=== PATIENT | female | born 1980 | race Caucasian/White ===

== ENCOUNTER 2016-10-19 14:23 | Inpatient (IN) | payer MEDICAID ==
[~2016-10-19] VITALS: Ht 149.9 cm; Wt 79.5 kg
[2016-10-19 14:33] VITALS: Ht 149.9 cm; Wt 79.5 kg
[2016-10-19] MEDS ORDERED: OXYTOCIN 30 UNITS/LR 500 ML IV PRN (16:00)
[2016-10-19] MEDS ORDERED: MISOPROSTOL 200 MCG TAB PR PRN (16:00)
[2016-10-19] MEDS ORDERED: METHYLERGONOVINE 0.2 MG INJ IM PRN (16:00)
[2016-10-19] MEDS ORDERED: CEFAZOLIN 2 GM/50 ML (PMX) 50 ML IV SCH (16:00)
[2016-10-19] MEDS ORDERED: CARBOPROST 250 MCG INJ IM PRN (16:00)
[2016-10-19 16:25] LABS: ADD SCAN DIFF NO; BASOPHILS % 0.3 % (0.0-2.0); EOSINOPHILS % 0.5 % (0.0-7.0); HEMATOCRIT 35.2 % (37.0-47.0); HEMOGLOBIN 12.4 g/dl (12.0-16.0); LYMPHOCYTES # 1.5 10^3/ul (0.8-2.9); LYMPHOCYTES % 18.7 % (15.0-51.0); MEAN CORPUSCULAR HEMOGLOBIN 31.3 pg (29.0-33.0); MEAN CORPUSCULAR HGB CONC 35.2 g/dl (32.0-37.0); MEAN CORPUSCULAR VOLUME 88.9 fl (82.0-101.0); MEAN PLATELET VOLUME 11.1 fl (7.4-10.4); MONOCYTE # 0.6 10^3/ul (0.3-0.9); MONOCYTES % 7.3 % (0.0-11.0); NEUTROPHIL # 5.7 10^3/ul (1.6-7.5); NEUTROPHILS % 72.7 % (39.0-77.0); PLATELET COUNT 173 10^3/UL (140-415); RED BLOOD COUNT 3.96 10^6/ul (4.20-5.40); RED CELL DISTRIBUTION WIDTH 13.9 % (11.5-14.5); WHITE BLOOD COUNT 7.9 10^3/ul (4.8-10.8)
[2016-10-19] MEDS: LACTATED RINGER'S 1,000 ML IV SCH ×2 (16:36→18:30)
[2016-10-19 16:41] LABS: INR 0.92; PROTIME 12.4 Sec (12.2-14.2)
[2016-10-19 16:42] LABS: PARTIAL THROMBOPLASTIN TIME 27.3 Sec (25.0-35.0)
[2016-10-19] MEDS ORDERED: morphine SULFATE/PF (10 MG/10 ML) INJ ONE (21:08)
[2016-10-19] MEDS ORDERED: FENTAnyl 50 MCG/ML VIAL ONE (21:09)
--- NOTE | 2016-10-19 21:14 | HP ---
Date/Time of Note Date/Time of Note DATE: 10/19/16 TIME: 21:01 OB - History Hx of Present Free Text/Dictation 36 y/o with SIUP at 38 6/7 weeks with three previous C/S presents with a chief complaint of ucs. She has [facility] with [facility]Scott Larry MD. She states good movement. She denies nausea, vomiting, shortness of breath, chest pain, and abdominal pain between contractions, headache, visual changes, vaginal bleeding or LOF. She is desiring BTL Chief Complaint: ucs : 5 Para: 4 Spontaneous : 0 Therapeutic : 0 Care: Good Care Ultrasounds: Normal mid trimester US Obstetrical Complications: None Medical Complications: None Past Family/Social History * Past Medical, Surgical, Family and Obstetric Histories reviewed from chart. Blood Type: O+ Rubella: immune RPR/VDRL: Negative GBS Status: Positive HBsAG: Negative OB Admission Exam Physical Exam HEENT: WNL Heart: Rhythm Normal Lungs: Clear Extremities: Normal Reflexes: Normal Cervical Dilatation: 1cm Effacement: 75% Station: -2 Heart Rate: 140's Accelerations: Accelerations Present Decelerations: No Decelerations Varibility: Moderate Contractions on Admission: 6-10 Minutes Apart Intensity: Moderate Last 72 hours Lab Results CBC & BMP 10/19/16 15:33 OB Assessment/Plan Other plan: 36 y/o with SIUP at 38 6/7 weeks with three previous C/S in early labor desiring repeat C/S and BTL - FHR: No sign of metabolic acidosis- Category I - Continious EFM, toco - CBC, blood type and screen - Analgesia options with R/B/A discussed in detail with patient - Epidural per patient request - Please see the orders - O+/Rubella: Immune/GBS positive Admission, procedures, expectations, risks and possible complications have been discussed in detail with the patient. delivery with risk of bleeding, infection, injury to other organs (bowel, bladder, ureter, vessels, nerves), injury to fetus, blood transfusion, blood transfusion related infection, risk of anesthesia, scar and hernia formation, needs for future , removal of uterus or any other indicated surgery and permanent sterilization with BTL, R/B/ A/FR of BTL, increase risk of EP if failure occurs discussed with the patient. She expressed understanding and repeats the risks. All of her questions were answered. She signed consent form PHYSICIAN'S VERIFICATION OF INFORMED CONSENT: The patient was counseled regarding the procedure, its indications, risks, potential complications and alternatives and any questions were answered. Consent was obtained. PLANNED PROCEDURE/TREATMENT: delivery, Bilateral tubal ligation, possible vacuum and forceps delivery PHYSICIAN'S VERIFICATION OF INFORMED CONSENT FOR BLOOD TRANSFUSION: There is a reasonable possibility that blood transfusion will be necessary as a result of the patient's procedure. I have discussed the following with the patient/patient's legal fuels sales representative: An explanation of the benefits and risks of the transfusion of blood or blood products and the possible alternatives. Al questions have been answered to the patient's/patients legal representatives satisfaction. INFORMED CONSENT: The patient has been informed of: - The nature of the proposed care, treatment, services, medic- Potential benefits, risks or side effects, including potential problems related to recuperation. - The likelihood of achieving care treatment and service goals. - Reasonable alternatives to the proposed care, treatment and service. - The relevant risks, benefits and side effects related to alternatives, including the possible results of not receiving care, treatment and services. - When indicated, any limitations on the confidentiality of information learned from or about the patient. - If appropriate, the risks, benefits and alternatives of the drugs to be used for sedation/analgesia including moderate sedation. - If appropriate, patient has been provided information on the risks, benefits and alternatives to the transfusion of blood and/or blood products. SCOTT LARRY October 19, 2016 21:12
[2016-10-19] MEDS ORDERED: PHENYLephrine (100 MCG/ML) 5ML SYG ONE (21:20)
[2016-10-19] MEDS ORDERED: OXYTOCIN 30 UNITS/LR 500 ML IV ONE ×2 (21:22→22:40)
[2016-10-19] MEDS ORDERED: DEXAMETHASONE 4 MG/ML 1 ML INJ ONE (22:06)
[2016-10-19] MEDS ORDERED: ONDANSETRON 4 MG INJ ONE (22:07)
[2016-10-19] MEDS ORDERED: NALOXONE (0.4 MG/ML) INJ IV PRN (22:30)
[2016-10-19] MEDS ORDERED: KETOROLAC 30 MG INJ IV PRN (22:30)
[2016-10-19] MEDS ORDERED: DIPHENHYDRAMINE 50 MG INJ IV PRN (22:30)
[2016-10-19] MEDS ORDERED: ZOLPIDEM 5 MG TAB PO PRN (22:30)
[2016-10-19] MEDS ORDERED: HYDROmorphONE 1 MG/ML SYG IV PRN ×2 (22:30)
[2016-10-19] MEDS ORDERED: ONDANSETRON 4 MG INJ IV PRN (22:30)
[2016-10-19] MEDS ORDERED: DEXTROSE 5%-LR 1,000 ML IV SCH (22:50)
--- NOTE | 2016-10-19 22:50 | OPR ---
Operative Report Planned Procedure Free Text/Dictation 36 year-old, [id number], with single intrauterine at 38 6/7 weeks , three previous delivery and desiring for permanent sterilization presents in labor Procedure date October 19, 2016 Procedure(s) 1- Repeat C/S 2- Bilateral tubal ligation (Gemma procedure) Performed by: SCOTT LARRY Assisting provider: LORRAINE TAN MD Anesthesiologist: REJI ACOSTA Pre-procedure diagnosis 36 year-old, [id number], with single intrauterine at 38 6/7 weeks , three previous delivery and desiring for permanent sterilization in labor Anesthesia Type: spinal Procedure Description INDICATION & HISTORY The patient is a 36 year-old, [id number], with single intrauterine at 38 6/7 weeks, three previous delivery in labor. She desires BTL. The risks of delivery and BTL including but not limited to bleeding, infection, injury to other organs (bowel, bladder, ureters, vessels , nerves), injury to the , blood transfusion, blood transfusion related infections, removal of uterus, risk of anesthesia, risks with future , repeat , adhesion/hernia formation, permanent sterilization discussed in detail with the patient. She voiced understanding and agreed with . She signed the informed consent. DESCRIPTION OF OPERATION: The patient was taken to the operating room, where she was identified and the procedure was verified. She received spinal anesthesia. The patient was placed in dorsal supine position with the left tilt. The heart rate was 138 per minute. The patient was then prepped and draped in the normal sterile fashion. The Pfannenstiel skin incision was made, and carried down to the fascia with knife. The fascia was incised in the midline, and the fascial incision was carried laterally with the Hall scissors. The superior portion of the fascial incision was then grasped with Pavel clamps, tented up and dissected off the underlying rectus muscle with sharp dissection. The lower portion of the fascial incision was then made in a similar fashion. The rectus muscle was and the peritoneum was entered. The peritoneal incision was then stretched and a bladder blade was inserted. Then, an incision was made in the lower uterine segment in a transverse fashion with the knife and extended bluntly. The was delivered atraumatically in cephalic presentation, with the above findings. The resuscitation team was present and the baby was handed to them. A cord blood sample was obtained for further evaluation. The placenta and membranes, which appeared normal were removed. The uterus was exteriorized and cleared of all clots and debris. The uterus was then closed in a two layer fashion with 0 Vicryl. At the time of closure, hemostasis was noted. Left fallopian tubes grasped with Willits, an incision made on mesosalpinx with bovie, then both side of fallopian tube ligated with o plain. Segment of fallopian tube removed and sent to pathology. Same procedure performed at right side. The gutters were irrigated. The peritoneum was reapproximated with 3-0 Vicryl. The muscle was reapproximated with 3-0 Vicryl. The fascia approximated with 0 Vicryl in a running fashion. The subcutaneous closed with 3/0 vicryl. The skin was closed with 4-0 Monocryl. All instrument, sponge, lap, and needle counts were correct x4. The patient tolerated the procedure well. She was transferred to the recovery room in stable condition. The patient received 2 g Ancef 30 minutes prior to surgery. Post-Procedure Post-procedure diagnosis 36 year-old, [id number], with single intrauterine at 38 6/7 weeks , three previous delivery and desiring for permanent sterilization in labor Findings: Live Baby [male], Apgars [8] and [9], weight [3315 gram-7 lbs 5 oz], [cephalic] presentation [3 v]cord. Specimen removed: No Complications: None Pt Condition post procedure: stable Disposition: PACU Physician Certification I, the undersigned physician, hereby certify that I have discussed the procedure described in this consent form with this patient (or the patient's legal sales representative), including: * The risk and benefits of the procedure; * Any adverse reactions that may reasonably be expected to occur; * Any alternative efficacious methods of treatment which may be medically viable ; * The potential problems that may occur during recuperation; * Potential for blood transfusion and associated risks/benefits; and * Any research or economic interest I may have regarding this treatment. I further certify that the patient/legally responsible person was encouraged to ask question and that all questions were answered. SCOTT LARRY October 19, 2016 22:50
[2016-10-19] MEDS ORDERED: LIDOCAINE 1% (MPF) 30 ML INJ INJ PRN (23:00)
[2016-10-19] MEDS: OXYTOCIN 30 UNITS/LR 500 ML IV SCH (23:42)
[2016-10-20] VITALS (7 sets, daily range): BP systolic 97–127; BP diastolic 52–60; PULSE 70–85; RESP 17–20
[2016-10-20] MEDS: OXYTOCIN 30 UNITS/LR 500 ML IV SCH (01:56)
[2016-10-20 11:21] LABS: ADD SCAN DIFF NO
[2016-10-20 11:22] LABS: BASOPHILS % 0.1 % (0.0-2.0); HEMATOCRIT 28.8 % (37.0-47.0); HEMOGLOBIN 9.9 g/dl (12.0-16.0); LYMPHOCYTES # 1.2 10^3/ul (0.8-2.9); LYMPHOCYTES % 10.2 % (15.0-51.0); MEAN CORPUSCULAR HEMOGLOBIN 30.2 pg (29.0-33.0); MEAN CORPUSCULAR HGB CONC 34.4 g/dl (32.0-37.0); MEAN CORPUSCULAR VOLUME 87.8 fl (82.0-101.0); MEAN PLATELET VOLUME 11.1 fl (7.4-10.4); MONOCYTE # 0.7 10^3/ul (0.3-0.9); MONOCYTES % 5.9 % (0.0-11.0); NEUTROPHIL # 9.8 10^3/ul (1.6-7.5); NEUTROPHILS % 83.4 % (39.0-77.0); PLATELET COUNT 159 10^3/UL (140-415); RED BLOOD COUNT 3.28 10^6/ul (4.20-5.40); RED CELL DISTRIBUTION WIDTH 13.6 % (11.5-14.5); WHITE BLOOD COUNT 11.8 10^3/ul (4.8-10.8)
[2016-10-20] MEDS: LACTATED RINGER'S 1,000 ML IV SCH ×2 (11:40→17:02)
--- NOTE | 2016-10-20 16:15 | DS ---
Date/Time of Note Date/Time of Note DATE: 10/20/16 TIME: 16:13 Obstetrical Discharge Record Final Diagnosis Final Diagnosis: Term delivered Vaginal Delivery Obstetrical Delivery: Spontaneous Condition on Discharge Physical Assessment Last Vitals: ost day 2 Patient is doing well, Ambulatory She is afebrile Abdomen is soft , Fundus is firm Moderate amount of lochia Breasts are soft, Nipples are intact No calf tenderness. Perineum is healing well. Breast feeding the new born. Voiding: Yes Bowel Movement: Yes Breast: Soft, non-tender Fundus: Firm Episiotomy: Laboratory Tests Test 10/20/16 10:50 White Blood Count 11.810^3/ul Red Blood Count 3.2810^6/ul Hemoglobin 9.9g/dl Hematocrit 28.8% Mean Corpuscular Volume 87.8fl Mean Corpuscular Hemoglobin 30.2pg Mean Corpuscular Hemoglobin Concent 34.4g/dl Red Cell Distribution Width 13.6% Platelet Count 24319^3/UL Mean Platelet Volume 11.1fl Neutrophils % 83.4% Lymphocytes % 10.2% Monocytes % 5.9% Eosinophils % 0.0% Basophils % 0.1% Nucleated Red Blood Cells % 0.0/100WBC Neutrophils # 9.810^3/ul Lymphocytes # 1.210^3/ul Monocytes # 0.710^3/ul Eosinophils # 0.010^3/ul Basophils # 0.010^3/ul Nucleated Red Blood Cells # 0.010^3/ul Hepatitis B Surface Antigen NEGATIVE Hepatitis C Antibody NEGATIVE HIV (1&2) Antibody NEGATIVE Current Medications Medications (Trade) Dose Ordered Sig/Ramez Route PRN Reason Start Time Stop Time Status Last Admin Dose Admin Lactated Ringer's 1,000 ml @ 125 mls/hr Q8H IV 10/19/16 15:33 10/20/16 11:40 Cefazolin Sodium/ Dextrose 50 ml @ 100 mls/hr ONCE IV 10/19/16 16:00 10/20/16 03:09 DC 10/19/16 22:32 Oxytocin/Lactated Ringer's 500 ml @ 125 mls/hr ONCE IV 10/19/16 16:00 10/20/16 03:09 DC 10/20/16 01:56 Oxytocin/Lactated Ringer's 500 ml @ 0 mls/hr ONCE PRN IV For Hemorrhage Management 10/19/16 16:00 10/20/16 04:31 Methylergonovine Maleate (Methergine) 0.2 mg ONCE PRN IM VAGINAL BLEEDING 10/19/16 16:00 10/20/16 00:00 Carboprost Tromethamine (Hemabate) 250 mcg ONCE PRN IM VAGINAL BLEEDING 10/19/16 16:00 Misoprostol (Cytotec) 1,000 mcg ONCE PRN NV VAGINAL BLEEDING 10/19/16 16:00 10/20/16 01:37 Morphine Sulfate (Duramorph) 10 mg STK-MED ONCE .ROUTE 10/19/16 21:08 10/19/16 21:09 DC Fentanyl (Sublimaze) 100 mcg STK-MED ONCE .ROUTE 10/19/16 21:09 10/19/16 21:10 DC Phenylephrine HCl 500 mcg 500 mcg STK-MED ONCE .ROUTE 10/19/16 21:20 10/19/16 21:21 DC Oxytocin/Lactated Ringer's 500 ml @ ud STK-MED ONCE IV 10/19/16 21:22 10/19/16 21:23 DC Naloxone HCl (Narcan) 0.1 mg Q2M PRN IV FOR RESP RATE 8 OR LESS 10/19/16 22:30 10/20/16 21:11 Ketorolac Tromethamine (Toradol) 30 mg Q6H PRN IV PAIN 10/19/16 22:30 10/20/16 21:11 Hydromorphone HCl (Dilaudid) 0.2 mg Q3H PRN IV PAIN LEVEL 1-5 10/19/16 22:30 10/20/16 21:11 Hydromorphone HCl (Dilaudid) 0.4 mg Q3H PRN IV PAIN LEVEL 6-10 10/19/16 22:30 10/20/16 21:11 Diphenhydramine HCl (Benadryl) 25 mg Q6H PRN IV ITCHING 10/19/16 22:30 10/20/16 21:11 Ondansetron HCl (Zofran Inj) 4 mg Q6H PRN IV NAUSEA AND/OR VOMITING 10/19/16 22:30 10/20/16 21:11 Zolpidem Tartrate (Ambien) 5 mg HS MAY REPEAT X 1 PRN PO INSOMNIA 10/19/16 22:30 10/20/16 21:11 Miscellaneous Information (* Miscellaneous Pharmacy Order) Duramorph: .2 mg . Spi... GIVEN ONCE XX 10/19/16 22:30 10/19/16 22:31 DC Dexamethasone (Decadron) 4 mg STK-MED ONCE .ROUTE 10/19/16 22:06 10/19/16 22:07 DC Ondansetron HCl 4 mg 4 mg STK-MED ONCE .ROUTE 10/19/16 22:07 10/19/16 22:08 DC Oxytocin/Lactated Ringer's 500 ml @ ud STK-MED ONCE IV 10/19/16 22:40 10/19/16 22:41 DC Dextrose/Lactated Ringer's (D5-Lr) 1,000 ml @ 125 mls/hr Q8H IV 10/19/16 22:50 Lidocaine (Xylocaine 1% (Mpf)) 30 ml ONCE PRN INJ EPISIOTOMY/TEARING 10/19/16 23:00 10/20/16 03:09 DC Calf Tenderness: Yes Patient Condition: Good YESY ZHAO MD October 20, 2016 16:15
--- NOTE | 2016-10-20 16:25 | PN ---
Date/Time of Note Date/Time of Note DATE: 10/20/16 TIME: 16:23 OB Subjective Subjective Subjective October 202016 Post C Section day 1 Patient is doing well, Ambulatory She is afebrile Abdomen is soft , Fundus is firm Moderate amount of lochia Breasts are soft, Nipples are intact No calf tenderness. Breast feeding the new born. Incision is healing Laboratory Tests Test 10/20/16 10:50 White Blood Count 11.810^3/ul Red Blood Count 3.2810^6/ul Hemoglobin 9.9g/dl Hematocrit 28.8% Mean Corpuscular Volume 87.8fl Mean Corpuscular Hemoglobin 30.2pg Mean Corpuscular Hemoglobin Concent 34.4g/dl Red Cell Distribution Width 13.6% Platelet Count 21208^3/UL Mean Platelet Volume 11.1fl Neutrophils % 83.4% Lymphocytes % 10.2% Monocytes % 5.9% Eosinophils % 0.0% Basophils % 0.1% Nucleated Red Blood Cells % 0.0/100WBC Neutrophils # 9.810^3/ul Lymphocytes # 1.210^3/ul Monocytes # 0.710^3/ul Eosinophils # 0.010^3/ul Basophils # 0.010^3/ul Nucleated Red Blood Cells # 0.010^3/ul Hepatitis B Surface Antigen NEGATIVE Hepatitis C Antibody NEGATIVE HIV (1&2) Antibody NEGATIVE Current Medications Medications (Trade) Dose Ordered Sig/Ramez Route PRN Reason Start Time Stop Time Status Last Admin Dose Admin Lactated Ringer's 1,000 ml @ 125 mls/hr Q8H IV 10/19/16 15:33 10/20/16 11:40 Cefazolin Sodium/ Dextrose 50 ml @ 100 mls/hr ONCE IV 10/19/16 16:00 10/20/16 03:09 DC 10/19/16 22:32 Oxytocin/Lactated Ringer's 500 ml @ 125 mls/hr ONCE IV 10/19/16 16:00 10/20/16 03:09 DC 10/20/16 01:56 Oxytocin/Lactated Ringer's 500 ml @ 0 mls/hr ONCE PRN IV For Hemorrhage Management 10/19/16 16:00 10/20/16 04:31 Methylergonovine Maleate (Methergine) 0.2 mg ONCE PRN IM VAGINAL BLEEDING 10/19/16 16:00 10/20/16 00:00 Carboprost Tromethamine (Hemabate) 250 mcg ONCE PRN IM VAGINAL BLEEDING 10/19/16 16:00 Misoprostol (Cytotec) 1,000 mcg ONCE PRN [place] VAGINAL BLEEDING 10/19/16 16:00 10/20/16 01:37 Morphine Sulfate (Duramorph) 10 mg STK-MED ONCE .ROUTE 10/19/16 21:08 10/19/16 21:09 DC Fentanyl (Sublimaze) 100 mcg STK-MED ONCE .ROUTE 10/19/16 21:09 10/19/16 21:10 DC Phenylephrine HCl 500 mcg 500 mcg STK-MED ONCE .ROUTE 10/19/16 21:20 10/19/16 21:21 DC Oxytocin/Lactated Ringer's 500 ml @ ud STK-MED ONCE IV 10/19/16 21:22 10/19/16 21:23 DC Naloxone HCl (Narcan) 0.1 mg Q2M PRN IV FOR RESP RATE 8 OR LESS 10/19/16 22:30 10/20/16 21:11 Ketorolac Tromethamine (Toradol) 30 mg Q6H PRN IV PAIN 10/19/16 22:30 10/20/16 21:11 Hydromorphone HCl (Dilaudid) 0.2 mg Q3H PRN IV PAIN LEVEL 1-5 10/19/16 22:30 10/20/16 21:11 Hydromorphone HCl (Dilaudid) 0.4 mg Q3H PRN IV PAIN LEVEL 6-10 10/19/16 22:30 10/20/16 21:11 Diphenhydramine HCl (Benadryl) 25 mg Q6H PRN IV ITCHING 10/19/16 22:30 10/20/16 21:11 Ondansetron HCl (Zofran Inj) 4 mg Q6H PRN IV NAUSEA AND/OR VOMITING 10/19/16 22:30 10/20/16 21:11 Zolpidem Tartrate (Ambien) 5 mg HS MAY REPEAT X 1 PRN PO INSOMNIA 10/19/16 22:30 10/20/16 21:11 Miscellaneous Information (* Miscellaneous Pharmacy Order) Duramorph: .2 mg . Spi... GIVEN ONCE XX 10/19/16 22:30 10/19/16 22:31 DC Dexamethasone (Decadron) 4 mg STK-MED ONCE .ROUTE 10/19/16 22:06 10/19/16 22:07 DC Ondansetron HCl 4 mg 4 mg STK-MED ONCE .ROUTE 10/19/16 22:07 10/19/16 22:08 DC Oxytocin/Lactated Ringer's 500 ml @ ud STK-MED ONCE IV 10/19/16 22:40 10/19/16 22:41 DC Dextrose/Lactated Ringer's (D5-Lr) 1,000 ml @ 125 mls/hr Q8H IV 10/19/16 22:50 Lidocaine (Xylocaine 1% (Mpf)) 30 ml ONCE PRN INJ EPISIOTOMY/TEARING 10/19/16 23:00 10/20/16 03:09 DC YESY ZHAO MD October 20, 2016 16:25
[2016-10-20] MEDS ORDERED: OXYCODONE/ACETAMINOPHEN (5/325) TAB PO PRN ×2 (21:30)
[2016-10-21 04:00] VITALS: BP 102/60; PULSE 76; RESP 18
[2016-10-21 08:00] VITALS: BP 102/50; PULSE 72; RESP 18
[2016-10-21] MEDS: IBUPROFEN 800 MG TAB PO SCH ×3 (10:47→20:35)
[2016-10-21 16:20] VITALS: BP 99/57; PULSE 90; RESP 18
[2016-10-21 19:50] VITALS: BP 105/55; PULSE 90; RESP 18
[2016-10-22 04:20] VITALS: BP 105/65; PULSE 78; RESP 18
[2016-10-22 08:30] VITALS: BP 99/59; PULSE 80; RESP 18
[2016-10-22] MEDS: IBUPROFEN 800 MG TAB PO SCH ×2 (09:09→13:22)
--- NOTE | 2016-10-22 11:53 | PN ---
Date/Time of Note Date/Time of Note DATE: 10/22/16 TIME: 11:31 OB Subjective Subjective Subjective Patient is POD #3 status post positive voiding ,positive flatus, positive BM Patient is ambulating well and tolerating regular diet She has no complaints today and desires to go home OB Objective Objective Objective Patient stable and afebrile HEENT: WNL Heart: Rhythm Normal Lungs: Clear, Equal Abdomen: WNL (Incision clean dry and intact) Extremities: Normal Reflexes: Normal OB Assessment/Plan Other Assessment: Postop day #3 status post Patient stable and doing well Other plan: DC home today Prescription for Motrin 800 mg was given Patient was counseled to follow-up with her [facility] in 2 and 6 weeks LIS SOUZA MD October 22, 2016 11:53
--- NOTE | 2016-10-22 12:06 | DS ---
Date/Time of Note Date/Time of Note DATE: 10/22/16 TIME: 12:05 Obstetrical Discharge Record Final Diagnosis Final Diagnosis: Term delivered Section Section: Repeat Condition on Discharge Physical Assessment Voiding: Yes Bowel Movement: Yes Breast: Soft, non-tender Fundus: Firm Abdomen and Incision: C/D/I Calf Tenderness: No Patient Condition: Good Copies To: CC: SCOTT LARRY BAHAREH MD October 22, 2016 12:06
== END 2016-10-22 15:55 | disposition home or self-care (01) | DRG 766 ==
LOC: OBT 14:23 → L-D 14:25 → OBT 15:00 → L-D 15:00 → PP1 10-20 02:48
PROVIDERS: ADMIT Obstetrics & Gynecology; ATTEND Obstetrics & Gynecology
PROC: 0UB70ZZ Excision of Bilateral Fallopian Tubes, Open Approach (ICD-10-PCS; 2016-10-19)
PROC: 10D00Z1 Extraction of Products of Conception, Low, Open Approach (ICD-10-PCS; principal; 2016-10-19 20:00)
DX: O34.211 Maternal care for low transverse scar from previous cesarean delivery (principal); Z30.2 Encounter for sterilization; Z3A.38 38 weeks gestation of pregnancy; Z37.0 Single live birth
CPT/HCPCS: 85025; 85610; 85730; 86592; 86703; 86803; 86850; 86900; 86901; 87340; 88302; 94760; 99464; G0463; J0690; J1100; J1885; J2210; J2274; J2370; J2405; J2590; J3010; J7120; J7121